=== PATIENT | male | born 1985 | race Caucasian/White ===

== ENCOUNTER 2016-07-06 10:25 | Emergency (ER) | payer OTHER ==
--- NOTE | 2016-07-06 11:16 | ER Document Report ---
ED Skin Rash/Insect Bite/Abscs - General Chief Complaint: Rash Stated Complaint: LEFT HAND SWELLING/RASH Notes: transient urticarial rash x 1 week. unknown trigger. denies new contacts TRAVEL OUTSIDE OF THE [place] IN LAST 30 DAYS: No - HPI Patient complains to provider of: Skin rash/lesion Onset: Last week Onset/Duration: Sudden Quality of pain: No pain Skin Character: Urticarial Skin Temperature: Warm Quality of rash: Itchy Similar symptoms previously: No Recently seen / treated by doctor: No - [facility] Past Medical History - General Information source: Patient - Social History Smoking Status: Current Some Day Smoker Frequency of alcohol use: None Lives with: Family Family History: Reviewed & Not Pertinent - Medical History Medical History: Negative Renal/ Medical History: Denies: Hx Peritoneal Dialysis Review of Systems - Review of Systems Constitutional: No symptoms reported EENT: No symptoms reported Cardiovascular: No symptoms reported Respiratory: No symptoms reported Gastrointestinal: No symptoms reported Genitourinary: No symptoms reported Male Genitourinary: No symptoms reported Musculoskeletal: No symptoms reported Skin: See HPI Hematologic/Lymphatic: No symptoms reported Neurological/Psychological: No symptoms reported Physical Exam - Vital signs Vitals: Temp Pulse Resp BP Pulse Ox 97.8 F 95 16 138/85 H 98 07/06/16 10:27 07/06/16 10:27 07/06/16 10:27 07/06/16 10:27 07/06/16 10:27 Interpretation: Normal - General General appearance: Appears well, Alert - HEENT Head: Normocephalic, Atraumatic Eyes: Normal Pupils: PERRL - Respiratory Respiratory status: No respiratory distress Chest status: Nontender Breath sounds: Normal Chest palpation: Normal - Cardiovascular Rhythm: Regular Heart sounds: Normal auscultation Murmur: No - Abdominal Inspection: Normal Distension: No distension Bowel sounds: Normal Tenderness: Nontender Organomegaly: No organomegaly - Back Back: Normal, Nontender - Extremities General upper extremity: Normal inspection, Nontender, Normal color, Normal ROM , Normal temperature General lower extremity: Normal inspection, Nontender, Normal color, Normal ROM , Normal temperature, Normal weight bearing. No: Jonah's sign - Neurological Neuro grossly intact: Yes Cognition: Normal Orientation: AAOx4 Welch Coma Scale Eye Opening: Spontaneous Welch Coma Scale Verbal: Oriented Sari Coma Scale Motor: Obeys Commands Welch Coma Scale Total: 15 Speech: Normal Motor strength normal: LUE, RUE, LLE, RLE Sensory: Normal - Psychological Associated symptoms: Normal affect, Normal mood - Skin Skin Temperature: Warm Skin Moisture: Dry Skin Color: Normal Location of irregularity: Extremities Character of irregularity: Urticarial Course - Re-evaluation Re-evalutation: 07/06/16 11:13 H&P c/w urticaria. no skin sloughing or peeling. no oral lesions. no angioedema. pt stable for discharge - Vital Signs Vital signs: Temp Pulse Resp BP Pulse Ox 97.8 F 95 16 138/85 H 98 07/06/16 10:27 07/06/16 10:27 07/06/16 10:27 07/06/16 10:27 07/06/16 10:27 Discharge - Discharge Clinical Impression: Hives Condition: Stable Disposition: HOME, SELF-CARE Instructions: Acute Urticaria ([facility]), Steroid Medication, Antihistamines ([facility]), OTC Antihistamines ([facility]) Additional Instructions: Please take your medications as prescribed take OTC Benadryl 50mg every 6h in addition to prescribed medications follow up with your primary care if symptoms persist or worsen Prescriptions: Famotidine [Pepcid 20 mg Tablet] 20 mg PO BID #12 tablet Prednisone [Deltasone 10 mg Tablet] 10 mg PO ASDIR PRN #21 tablet PRN Reason:
[2016-07-06 11:35] VITALS: BP 131/93
== END 2016-07-06 11:30 | disposition home or self-care (01) ==
LOC: ER 10:25
DX: L50.9 Urticaria, unspecified (principal); F17.200 Nicotine dependence, unspecified, uncomplicated
CPT/HCPCS: 99282

== ENCOUNTER 2018-10-31 17:44 | Emergency (ER) | payer OTHER ==
[2018-10-31 17:50] VITALS: BP 146/87
[2018-10-31] MEDS ORDERED: IBUPROFEN 800 MG TABLET PO ONE (18:50)
[2018-10-31] MEDS ORDERED: DIPH/PERTUSS(ACELL)/TETANUS VAC/PF 0.5 ML SYR (>=10YO) IM ONE (18:51)
--- NOTE | 2018-10-31 18:55 | ER Document Report ---
HPI - HPI Time Seen by Provider: 10/31/18 18:44 Pain Level: 3 Context: Patient is a 33-year-old male who presents to the emergency department with a chief complaint of left lower leg pain. Patient states around 11 AM he was jumping off of a 7 ft object when he landed on a wooden A-frame. Patient states his left chambers took the brunt of the force. Patient states his tetanus shot is not up-to-date. Patient states he has been able to ambulate without mild pain. Patient denies any other injury such as head injury, neck pain. Past Medical History - General Information source: Patient - Social History Smoking Status: Current Every Day Smoker Lives with: Family Family History: Reviewed & Not Pertinent - Past Medical History Cardiac Medical History: Reports: None Pulmonary Medical History: Reports: None EENT Medical History: Reports: None Neurological Medical History: Reports: None Endocrine Medical History: Reports: None Renal/ Medical History: Reports: None. Denies: Hx Peritoneal Dialysis Malignancy Medical History: Reports None GI Medical History: Reports: None Musculoskeletal Medical History: Reports None Skin Medical History: Reports None Psychiatric Medical History: Reports: Hx Depression Traumatic Medical History: Reports: None Infectious Medical History: Reports: None - Immunizations Hx Diphtheria, Pertussis, Tetanus Vaccination: Yes Vertical Provider Document - CONSTITUTIONAL Agree With Documented VS: Yes Exam Limitations: No Limitations General Appearance: No Apparent Distress - INFECTION CONTROL TRAVEL OUTSIDE OF THE [place] IN LAST 30 DAYS: No - HEENT HEENT: Atraumatic, Normocephalic, PERRLA - RESPIRATORY Respiratory: Breath Sounds Normal, No Respiratory Distress - CARDIOVASCULAR Cardiovascular: Regular Rate, Regular Rhythm - GI/ABDOMEN Gastrointestinal: Abdomen Soft, Abdomen Non-Tender, Normal Bowel Sounds - MUSCULOSKELETAL/EXTREMETIES Notes: There is abrasion noted to the mid tibia with no active bleeding. Patient has minimal tenderness around the abrasion. There is no obvious deformity or ecchymosis. Patient has a good popliteal palpable pulse. - NEURO Level of Consciousness: Awake, Alert, Appropriate - DERM Integumentary: Warm, Dry, No Rash Course - Re-evaluation Re-evalutation: 10/31/18 18:53 We will obtain an x-ray of the tibia and fibula to rule out fracture. 10/31/18 19:25 X-ray was negative. Patient's Tdap was updated while in the emergency department. Patient to keep the area clean and dry. - Vital Signs Vital signs: Temp Pulse Resp BP Pulse Ox 98.0 F 80 16 146/87 H 96 10/31/18 17:49 10/31/18 17:49 10/31/18 17:49 10/31/18 17:49 10/31/18 17:49 - Diagnostic Test Radiology reviewed: Reports reviewed Radiology results interpreted by me: 10/31/18 19:25 Tibia/Fibula X-Ray 10/31/18 18:50 IMPRESSION: NEGATIVE STUDY OF THE LEFT TIBIA AND FIBULA. NO RADIOGRAPHIC EVIDENCE OF ACUTE INJURY. Discharge - Discharge Clinical Impression: Leg pain, left Fall Qualifiers: Encounter type: initial encounter Qualified Code(s): W19.XXXA - Unspecified fall, initial encounter Condition: Stable Disposition: HOME, SELF-CARE Additional Instructions: Today you are seen in the emergency department for leg pain after a fall. We did obtain an x-ray which is negative for any fracture. Please use ibuprofen or Tylenol as needed for pain. Please keep the abrasion clean and dry and monitor for signs of infection to include edema, drainage, redness that starts to streak up or down the leg or fever. Please return to the emergency department for any worsening signs or symptoms. Forms: Smoking Cessation Education, Return to Work
--- NOTE | 2018-10-31 19:23 | RADIOLOGY REPORT (SQ) ---
EXAM DESCRIPTION: TIBIA FIBULA LEFT COMPLETED DATE/TIME: 10/31/2018 7:08 pm REASON FOR STUDY: fall COMPARISON: None. NUMBER OF VIEWS: Two views. TECHNIQUE: Two radiographic images acquired of the left tibia and fibula to include the knee and ank le in at least one projection. LIMITATIONS: Artifact from an ankle bracelet FINDINGS: MINERALIZATION: Normal. BONES: No acute fracture or dislocation. No worrisome bone lesions. Moderate-sized plantar calcanea l spur. SOFT TISSUES: No obvious swelling or foreign body. Minimal calcifications/ossification of the patell ar ligament OTHER: Limited view of the knee and ankle joint unremarkable IMPRESSION: NEGATIVE STUDY OF THE LEFT TIBIA AND FIBULA. NO RADIOGRAPHIC EVIDENCE OF ACUTE INJURY. TECHNICAL DOCUMENTATION: JOB ID: [id number] [employer]- All Rights Reserved Reading location - IP/workstation name: [id number]
== END 2018-10-31 21:03 | disposition home or self-care (01) ==
LOC: ER 17:44
DX: S80.812A Abrasion, left lower leg, initial encounter (principal); M79.605 Pain in left leg; W22.8XXA Striking against or struck by other objects, initial encounter; F17.200 Nicotine dependence, unspecified, uncomplicated
CPT/HCPCS: 90471; 90715; 99283

== ENCOUNTER 2018-11-29 09:29 | Day surgery (SDC) | payer OTHER ==
[~2018-11-29 09:29] MED LIST: CEFAZOLIN 1 GM/D5W RTU 1 GM/50 ML RTUPB IV ONE; CEFAZOLIN 1 GM/D5W RTU 1 GM/50 ML RTUPB IV PRN
[2018-11-29] MEDS ORDERED: ALBUTEROL SULFATE 0.083% NEB 2.5 MG/3 ML AMPUL NEB ONE ×2 (10:20→10:23)
[2018-11-29] MEDS ORDERED: MIDAZOLAM 2 MG/2 ML INJ IV ONE (10:20)
[2018-11-29] MEDS ORDERED: MIDAZOLAM 2 MG/2 ML INJ ONE ×2 (10:21→11:03)
[2018-11-29] MEDS ORDERED: RINGERS SOLUTION,LACTATED 1,000 ML IV ONE (10:30)
[2018-11-29] MEDS ORDERED: BUPIVACAINE HCL 0.25% /EPINEPHRINE INJ/PF 30 ML SDV ONE (11:02)
[2018-11-29] MEDS ORDERED: PROPOFOL INJ 200 MG/20 ML VIAL IV ONE (11:03)
[2018-11-29] MEDS ORDERED: HYDROMORPHONE HCL INJ/PF 2 MG/ML AMPULE ONE (11:03)
[2018-11-29] MEDS ORDERED: FENTANYL CITRATE INJ/PF 100 MCG/2 ML AMPUL ONE ×2 (11:03→12:15)
[2018-11-29] MEDS ORDERED: BUPIVACAINE HCL 0.25% /EPINEPHRINE INJ/PF 30 ML SDV INJ ONE (11:59)
--- NOTE | 2018-11-29 12:00 | Operative Report ---
Nonrecallable Operative Report DATE OF SURGERY: 11/29/18 PREOPERATIVE DIAGNOSIS: Umbilical hernia POSTOPERATIVE DIAGNOSIS: Umbilical hernia OPERATION: Umbilical herniorrhaphy SURGEON: MAYURI KUHN DISTRIBUTION ASSOCIATE: CINTHYA JOE ANESTHESIA: GA TISSUE REMOVED OR ALTERED: None COMPLICATIONS: None ESTIMATED BLOOD LOSS: 5 cc INTRAOPERATIVE FINDINGS: See note PROCEDURE: Patient was brought to the operating room awake alert stable condition placed on the operating table in supine position induced under general anesthesia and intubated. The abdomen was prepped and draped in usual sterile fashion. After appropriate timeout and site verification a curvilinear infraumbilical incision was made with a 15 blade dissection was carried down through subtenons tissue with Bovie cautery. Using Metzenbaum scissors we dissected out the umbilical stalk slung it with an umbilical tape and placed on traction. Then used Bovie cautery to detach the umbilical staff from the fascia to identify the hernia. There is some incarcerated preperitoneal fat within the hernia sac which was reduced and a lot of drop back into the abdominal cavity. The under surface of the abdominal fascia was free from any adhesions. Using a 4 cm ventral Kamar mesh was easily slipped into the abdominal cavity and fixed to the anterior abdominal fascia with interrupted placed #2 Vicryl sutures. The fascia was then approximated over the mesh with interrupted placed #2 Vicryl sutures. the umbilical stalk was then tacked back down onto the anterior abdominal fascia and the subcutaneous tissue was closed with interrupted 2-0 Vicryl sutures. The skin was closed with intracuticular 4-0 Monocryl Steri-Strips completed the procedure estimated blood loss was less than 5 cc sponge needle counts correct x2 the patient was awakened in the operating room extubated transferred recovery in stable condition no complications Cinhtya REYNOLDS was present for the entire case for help with wound retraction wound closure
[2018-11-29] MEDS ORDERED: OXYCODONE-ACETAMINOPHEN 5-325 MG TABLET PO PRN (12:03)
--- NOTE | 2018-11-29 12:03 | Discharge Summary ---
Discharge Summary (SDC) - Discharge Final Diagnosis: Umbilical hernia Date of Surgery: 11/29/18 Discharge Date: 11/29/18 Condition: Good [facility]errals: [facility] - Discharge Diet: As Tolerated Discharge Activity: Activity As Tolerated, No Lifting Over 10 Pounds Report the Following to Your Physician Immediately: Shortness of Breath, Nausea, Vomiting, Increase in Pain, Unusual Bleeding - Patient needs a follow-up appointment with me in 7 to 10 days
[2018-11-29] MEDS ORDERED: LIDOCAINE 2% INJ-PF (100 MG/5 ML) SYRINGE ONE (12:21)
[2018-11-29] MEDS ORDERED: PROMETHAZINE HCL INJ 25 MG/1 ML VIAL IV PRN ×2 (13:04)
[2018-11-29] MEDS ORDERED: FENTANYL CITRATE INJ/PF 100 MCG/2 ML AMPUL IV PRN ×3 (13:04)
[2018-11-29] MEDS ORDERED: MEPERIDINE HCL/PF INJ 25 MG/1 ML DISP.SYRIN IV PRN (13:04)
[2018-11-29] MEDS ORDERED: DIPHENHYDRAMINE HCL 50 MG/ML VIAL IV PRN (13:04)
[2018-11-29] MEDS ORDERED: OXYCODONE-ACETAMINOPHEN 5-325 MG TABLET ONE (13:08)
[2018-11-29 16:54] VITALS: BP 136/84
[2018-11-29] MEDS ORDERED: ONDANSETRON HCL INJ/PF 4 MG/2 ML SDV ONE (20:30)
[2018-11-29] MEDS ORDERED: NEOSTIGMINE METHYLSULFATE 10 MG/10 ML VIAL ONE (20:30)
[2018-11-29] MEDS ORDERED: KETOROLAC TROMETHAMINE 60 MG/2 ML SDV ONE (20:30)
[2018-11-29] MEDS ORDERED: DEXAMETHASONE SOD PHOSPHATE INJ 4 MG/1 ML VIAL ONE (20:30)
[2018-11-29] MEDS ORDERED: ROCURONIUM BROMIDE INJ 50 MG/5 ML VIAL IV ONE (20:30)
[2018-11-29] MEDS ORDERED: LIDOCAINE 2% INJ-PF (20 MG/ML) 2 ML AMPUL ONE (20:30)
== END 2018-11-29 14:30 | disposition home or self-care (01) ==
LOC: OROUT 09:29
PROVIDERS: ATTEND Surgery
DX: K42.9 Umbilical hernia without obstruction or gangrene (principal); F17.210 Nicotine dependence, cigarettes, uncomplicated
CPT/HCPCS: 94640; 49585; C1781; J2250; J3490 ×3; J0690; J1100; J1885; J3010; J2001; J2710; J1170; J2405; J2704